=== PATIENT | female | born 1970 | race Caucasian/White ===

== ENCOUNTER → 2020-07-03 | Outpatient (CLI) | payer BC | LOC: LAB 08:08 | DX: L02.91 Cutaneous abscess, unspecified (principal) ==

== ENCOUNTER → 2021-04-23 | Outpatient (CLI) | payer BC | LOC: MAMMO 08:31 | DX: Z12.31 Encounter for screening mammogram for malignant neoplasm of breast (principal) ==

== ENCOUNTER → 2021-05-10 | Outpatient (CLI) | payer BC ==
[2021-05-10 08:47] LABS: BASO # 0.08 K/mm3 (0.02-0.10); EOS # 0.19 K/mm3 (0.04-0.40); EOS % 1.9 % (1.0-5.0); HEMATOCRIT 46.8 % (37.0-47.0); HEMOGLOBIN 15.7 g/dL (12.5-16.0); LYMPH# 3.22 K/mm3 (1.50-4.00); MEAN CELL VOLUME 86 fl (78-100); MEAN CORPUSCULAR HEMOGLOBIN 29 pg (27-31); MEAN CORPUSCULAR HGB CONC 34 g/dL (33-37); MEAN PLATELET VOLUME 10.3 fl (7.4-10.4); MONO # 0.69 K/mm3 (0.20-0.80); NEU # 5.78 K/mm3 (1.40-6.50); PLATELET COUNT 429 K/mm3 (130-400); RED BLOOD COUNT 5.46 M/mm3 (4.10-5.30); RED CELL DISTRIBUTION WIDTH 11.9 % (11.5-14.5)
[2021-05-10 08:52] LABS: POTASSIUM 4.8 mmol/L (3.5-5.1)
[2021-05-10 08:53] LABS: ALBUMIN 3.7 g/dL (3.5-5.0)
[2021-05-10 08:54] LABS: CALCIUM 9.8 mg/dL (8.3-10.5)
[2021-05-10 08:55] LABS: TOTAL PROTEIN 7.3 g/dL (6.4-8.3)
[2021-05-10 08:57] LABS: TOTAL BILIRUBIN 0.5 mg/dL (0.2-1.2)
== END ==
LOC: LAB 08:26
PROVIDERS: Physician Assistant
DX: Z13.1 Encounter for screening for diabetes mellitus (principal); Z13.220 Encounter for screening for lipoid disorders; Z13.29 Encounter for screening for other suspected endocrine disorder; K90.9 Intestinal malabsorption, unspecified; I10 Essential (primary) hypertension

== ENCOUNTER → 2021-08-21 | Outpatient (CLI) | payer BC | LOC: RAD 15:53 | DX: M25.531 Pain in right wrist (principal) ==

== ENCOUNTER → 2021-09-30 | Outpatient (CLI) | payer BC | LOC: LAB 07:59 | DX: E11.9 Type 2 diabetes mellitus without complications (principal) ==

== ENCOUNTER → 2022-01-23 | Outpatient (CLI) | payer BC | LOC: LAB 07:22 | DX: K21.9 Gastro-esophageal reflux disease without esophagitis (principal); F41.1 Generalized anxiety disorder; E11.9 Type 2 diabetes mellitus without complications; I10 Essential (primary) hypertension ==

== ENCOUNTER → 2022-04-18 | Outpatient (CLI) | payer BC | LOC: RAD 08:21 | DX: E11.621 Type 2 diabetes mellitus with foot ulcer (principal); L97.509 Non-pressure chronic ulcer of other part of unspecified foot with unspecified severity; M77.31 Calcaneal spur, right foot ==

== ENCOUNTER → 2023-09-18 | Outpatient (CLI) | payer BC ==
[2023-09-18 07:45] LABS: ALBUMIN 3.9 g/dL (3.5-5.0)
[2023-09-18 07:46] LABS: CALCIUM 10.2 mg/dL (8.3-10.5)
[2023-09-18 07:48] LABS: TOTAL PROTEIN 7.1 g/dL (6.4-8.3)
[2023-09-18 07:49] LABS: TOTAL BILIRUBIN 0.6 mg/dL (0.2-1.2)
== END ==
LOC: LAB 07:20
PROVIDERS: Physician Assistant
DX: E11.9 Type 2 diabetes mellitus without complications (principal)

== ENCOUNTER → 2023-12-16 | Outpatient (CLI) | payer BC | LOC: LAB 07:29 | DX: E11.9 Type 2 diabetes mellitus without complications (principal) ==

== ENCOUNTER → 2024-03-03 | Outpatient (CLI) | payer BC ==
[2024-03-03 07:30] LABS: BASO # 0.05 K/mm3 (0.02-0.10); EOS # 0.23 K/mm3 (0.04-0.40); EOS % 2.3 % (1.0-5.0); HEMOGLOBIN 14.5 g/dL (12.5-16.0); LYMPH# 3.52 K/mm3 (1.50-4.00); MEAN CELL VOLUME 88 fl (78-100); MEAN CORPUSCULAR HEMOGLOBIN 29 pg (27-31); MEAN CORPUSCULAR HGB CONC 33 g/dL (33-37); MEAN PLATELET VOLUME 10.3 fl (7.4-10.4); MONO # 1.03 K/mm3 (0.20-0.80); NEU # 5.36 K/mm3 (1.40-6.50); PLATELET COUNT 389 K/mm3 (130-400); RED CELL DISTRIBUTION WIDTH 12.8 % (11.5-14.5); WHITE BLOOD COUNT 10.2 K/mm3 (4.8-10.8)
[2024-03-03 07:39] LABS: ALBUMIN 3.9 g/dL (3.5-5.0)
[2024-03-03 07:40] LABS: CALCIUM 10.5 mg/dL (8.3-10.5)
[2024-03-03 07:43] LABS: TOTAL BILIRUBIN 0.6 mg/dL (0.2-1.2)
== END ==
LOC: LAB 07:17
PROVIDERS: Physician Assistant
DX: E11.9 Type 2 diabetes mellitus without complications (principal); E78.5 Hyperlipidemia, unspecified; K90.9 Intestinal malabsorption, unspecified

== ENCOUNTER → 2024-08-24 | Outpatient (CLI) | payer BC | LOC: LAB 07:19 | DX: E11.9 Type 2 diabetes mellitus without complications (principal) ==